=== PATIENT | female | born 1935 | race Caucasian/White ===

== ENCOUNTER 2017-11-18 01:25 | Emergency (ER) | payer OTHER, MEDICARE ==
[~2017-11-18] VITALS: Ht 165.1 cm; Wt 81.6 kg
[2017-11-18 01:27] VITALS: BP_SYST 95
[2017-11-18] MEDS ORDERED: NACL 0.9% 1,000 ML IV ONE (01:28)
[2017-11-18] MEDS ORDERED: NS 500 ML IV ONE (01:30)
[2017-11-18] MEDS ORDERED: ARI1 PO (01:33)
[2017-11-18] MEDS ORDERED: CYM30 PO (01:34)
[2017-11-18] MEDS ORDERED: GABA-331 PO (01:34)
[2017-11-18] MEDS ORDERED: GABA-531 PO (01:35)
[2017-11-18] MEDS ORDERED: DOCU-144 PO (01:36)
[2017-11-18] MEDS ORDERED: ACET-2165 PO (01:36)
[2017-11-18] MEDS ORDERED: OMEP20CA10 PO (01:37)
[2017-11-18] MEDS ORDERED: ASPI-1063 PO (01:37)
[2017-11-18] MEDS ORDERED: SUCR1TAB78 PO (01:38)
[2017-11-18] MEDS ORDERED: DULR10 RC (01:39)
[2017-11-18] MEDS ORDERED: CHOL200035 PO (01:39)
[2017-11-18] MEDS ORDERED: MAGN400O4 PO (01:40)
[2017-11-18] MEDS ORDERED: HYDR-4100 PO (01:41)
[2017-11-18] MEDS ORDERED: MAG-55 PO (01:42)
[2017-11-18] MEDS ORDERED: LACT10SO6 PO (01:43)
[2017-11-18] MEDS ORDERED: NITSL SL (01:44)
[2017-11-18] MEDS ORDERED: ARTT OP (01:45)
[2017-11-18 02:51] LABS: ANION GAP 11 (5-15); CALCIUM 9.4 mg/dL (8.4-11.0); CHLORIDE 107 mmol/L (98-107); CREATININE 1.08 mg/dL (0.55-1.30); GLUCOSE 116 mg/dL (70-99); POTASSIUM 3.8 mmol/L (3.5-5.1); SODIUM SERUM 141 mmol/L (136-145); UREA NITROGEN, BLOOD 29 mg/dL (8-21)
[2017-11-18 02:53] LABS: HEMATOCRIT 31.3 % (36-48); HEMOGLOBIN 10.8 g/dL (12.0-16.0); MEAN CORPUSCULAR HEMOGLOBIN 35 pg (27-31); MEAN CORPUSCULAR HGB CONC 34 % (32-36); MEAN CORPUSCULAR VOLUME 101 fL (79.0-98.0); PLATELET COUNT (AUTO) 147 K/uL (130-430); RED CELL DISTRIBUTION WIDTH 13.3 % (9.0-15.0); WHITE BLOOD COUNT (AUTO) 14.2 K/uL (4.8-10.8)
[2017-11-18 03:02] LABS: ALANINE AMINOTRANSFERASE 36 U/L (12-78); ALBUMIN 2.6 g/dL (3.4-4.8); ASPARTATE AMINOTRANSFERASE 55 U/L (10-37); TOTAL BILIRUBIN 0.9 mg/dL (0.0-1.0)
[2017-11-18 03:48] LABS: BAND % (MANUAL) 10 % (0-6); BASOPHILS % (MANUAL) 0 % (0-2); EOSINOPHILS % (MANUAL) 0 % (0-7); LYMPHOCYTES % (MANUAL) 4 % (20-46); MONOCYTES % (MANUAL) 1 % (0-11)
[2017-11-18 04:15] VITALS: BP_SYST 93
== END 2017-11-18 04:15 | disposition home or self-care (01) ==
LOC: SED 01:25
DX: S39.92XA Unspecified injury of lower back, initial encounter (principal); K59.00 Constipation, unspecified; F03.90 Unspecified dementia, unspecified severity, without behavioral disturbance, psychotic disturbance, mood disturbance, and anxiety; K21.9 Gastro-esophageal reflux disease without esophagitis; Z91.041 Radiographic dye allergy status; Z79.82 Long term (current) use of aspirin; Z79.899 Other long term (current) drug therapy; W19.XXXA Unspecified fall, initial encounter; Y93.89 Activity, other specified; Y92.89 Other specified places as the place of occurrence of the external cause; Y99.8 Other external cause status
CPT/HCPCS: 36415; 71045; 74176; 80053; 83880; 84484; 85007; 85027; 93005; 96360; 96361; 99285; J7030; J7040

== ENCOUNTER 2018-01-01 09:53 | Emergency (ER) | payer OTHER, MEDICARE ==
[~2018-01-01] VITALS: Ht 165.1 cm; Wt 83.0 kg
[2018-01-01 09:53] VITALS: BP_SYST 97
[~2018-01-01 09:53] MED LIST: ACET-2165 PO; ARI1 PO; ARTT OP; ASPI-1153 PO; CHOL200075 PO; CYM30 PO; DOCU-144 PO; DULR10 RC; GABA-331 PO; GABA-531 PO; HYDR-4100 PO; LACT10SO6 PO; MAG-55 PO; MOM PO; NITSL SL; OMEP20CA10 PO; SUCR1TAB78 PO
[2018-01-01] MEDS ORDERED: LIDOCAINE 1% 10 MG/ML, 20 ML MDV INJ ONE (10:45)
[2018-01-01] MEDS ORDERED: BACITRACIN 1 GM OINT TP ONE (11:00)
[2018-01-01 11:58] LABS: ACETAMINOPHEN 2 ug/mL (1-30)
[2018-01-01 12:09] LABS: ANION GAP 10 (5-15); CALCIUM 9.6 mg/dL (8.4-11.0); CHLORIDE 112 mmol/L (98-107); CREATININE 0.87 mg/dL (0.55-1.30); GLUCOSE 93 mg/dL (70-99); POTASSIUM 4.4 mmol/L (3.5-5.1); SODIUM SERUM 146 mmol/L (136-145); UREA NITROGEN, BLOOD 22 mg/dL (8-21)
[2018-01-01 12:14] LABS: ALANINE AMINOTRANSFERASE 18 U/L (12-78); ALBUMIN 2.7 g/dL (3.4-4.8); ASPARTATE AMINOTRANSFERASE 27 U/L (10-37); TOTAL BILIRUBIN 0.4 mg/dL (0.0-1.0)
[2018-01-01 12:44] LABS: BILIRUBIN,URINE NEGATIVE (NEGATIVE); BLOOD, URINE NEGATIVE (NEGATIVE); CLARITY/URINE CLEAR (CLEAR); COLOR,URINE YELLOW (YELLOW); GLUCOSE,URINE NEGATIVE (NEGATIVE); KETONES,URINE NEGATIVE (NEGATIVE); LEUKOCYTE ESTERASE ,URINE TRACE (NEGATIVE); NITRITE, URINE NEGATIVE (NEGATIVE); PH,URINE 5.5 (5.0-8.0); PROTEIN URINE NEGATIVE (NEGATIVE); UROBILINOGEN,URINE 0.2 (0.2-1.0)
[2018-01-01] MEDS ORDERED: CEPHALEXIN 500 MG CAPSULE PO ONE (14:45)
[2018-01-01 15:49] VITALS: BP_SYST 100
== END 2018-01-01 15:49 | disposition home or self-care (01) ==
LOC: SED 09:53
DX: S01.01XA Laceration without foreign body of scalp, initial encounter (principal); F03.90 Unspecified dementia, unspecified severity, without behavioral disturbance, psychotic disturbance, mood disturbance, and anxiety; K21.9 Gastro-esophageal reflux disease without esophagitis; Z79.899 Other long term (current) drug therapy; Z88.8 Allergy status to other drugs, medicaments and biological substances; W01.0XXA Fall on same level from slipping, tripping and stumbling without subsequent striking against object, initial encounter; Y93.89 Activity, other specified; Y92.89 Other specified places as the place of occurrence of the external cause; Y99.8 Other external cause status
CPT/HCPCS: 12001; 36415; 80053; 81003; 93970; 99285; G0480; G0481; J2001

== ENCOUNTER 2018-04-09 09:32 | Inpatient (IN) | payer OTHER, MEDICARE ==
[~2018-04-09] VITALS: Ht 157.5 cm; Wt 62.6 kg
[2018-04-09 09:44] VITALS: BP_SYST 113
[2018-04-09 10:48] LABS: BASOPHILS # (AUTO) 0.1 K/uL (0.0-0.2); BASOPHILS % (AUTO) 1.3 % (0.0-2.0); EOSINOPHILS # (AUTO) 0.2 K/uL (0.0-0.4); HEMATOCRIT 34.5 % (36-48); HEMOGLOBIN 11.2 g/dL (12.0-16.0); LYMPHOCYTES # (AUTO) 1.3 K/uL (1.0-5.5); LYMPHOCYTES % (AUTO) 33.4 % (20.5-51.5); MEAN CORPUSCULAR HEMOGLOBIN 34 pg (27-31); MEAN CORPUSCULAR HGB CONC 33 % (32-36); MEAN CORPUSCULAR VOLUME 105 fL (79.0-98.0); MONOCYTES # (AUTO) 0.4 K/uL (0.0-1.0); MONOCYTES % (AUTO) 10.5 % (1.7-9.3); NEUTROPHILS % (AUTO) 50.8 % (40.0-70.0); PLATELET COUNT (AUTO) 207 K/uL (130-430); RED BLOOD CELL COUNT(AUTO) 3.28 MIL/uL (4.2-6.2); RED CELL DISTRIBUTION WIDTH 15.5 % (9.0-15.0)
[2018-04-09 10:51] LABS: ANION GAP 8 (5-15); CALCIUM 10.3 mg/dL (8.4-11.0); CHLORIDE 107 mmol/L (98-107); CREATININE 1.19 mg/dL (0.55-1.30); GLUCOSE 75 mg/dL (70-99); POTASSIUM 4.7 mmol/L (3.5-5.1); SODIUM SERUM 138 mmol/L (136-145); UREA NITROGEN, BLOOD 22 mg/dL (8-21)
[2018-04-09 10:58] LABS: ALANINE AMINOTRANSFERASE 27 U/L (12-78); ALBUMIN 3.4 g/dL (3.4-4.8); ASPARTATE AMINOTRANSFERASE 34 U/L (10-37); TOTAL BILIRUBIN 0.7 mg/dL (0.0-1.0)
[2018-04-09 11:33] LABS: BILIRUBIN,URINE NEGATIVE (NEGATIVE); BLOOD, URINE NEGATIVE (NEGATIVE); CLARITY/URINE CLEAR (CLEAR); COLOR,URINE YELLOW (YELLOW); GLUCOSE,URINE NEGATIVE (NEGATIVE); KETONES,URINE NEGATIVE (NEGATIVE); LEUKOCYTE ESTERASE ,URINE TRACE (NEGATIVE); NITRITE, URINE NEGATIVE (NEGATIVE); PROTEIN URINE NEGATIVE (NEGATIVE); UROBILINOGEN,URINE 0.2 (0.2-1.0)
[2018-04-09 11:38] LABS: RBC,URINE 0-3 /HPF (0-3)
[2018-04-09 11:39] LABS: BACTERIA,URINE MANY /HPF (None Seen); MUCUS,URINE None Seen /LPF (None Seen)
[2018-04-09 11:44] LABS: PROTHROMBIN TIME 9.8 SECS (9.5-12.5)
[2018-04-09] MEDS ORDERED: cefTRIAXone 1 GM IVPB PREMIX 50 ML IV ONE (13:15)
[2018-04-09] MEDS ORDERED: POTASSIUM CHLORIDE 20 MEQ in 0.45% NACL 1,000 ML IV SCH (13:28)
[2018-04-09] MEDS ORDERED: BISACODYL 10 MG/SUPPOSITORY RC PRN (16:15)
[2018-04-09] MEDS ORDERED: NITROGLYCERIN 0.4 MG TAB.SUBL SL PRN (16:15)
[2018-04-09] MEDS ORDERED: ACETAMINOPHEN 325 MG TABLET PO PRN (16:15)
[2018-04-09] MEDS ORDERED: MILK OF MAGNESIA 30 ML UDC PO PRN (16:15)
[2018-04-09 16:57] VITALS: BP_SYST 96
[2018-04-09] MEDS: POTASSIUM CHLORIDE 20 MEQ in 0.45% NACL 1,000 ML IV SCH (17:42)
[2018-04-09 20:00] VITALS: BP_SYST 114
[2018-04-09] MEDS: SUCRALFATE 1 GM TABLET PO SCH (20:15)
[2018-04-09] MEDS: CEFEPIME 1 GM in D5W 50 ML IV SCH (20:15)
[2018-04-09] MEDS: PEG 400/HYPROMELLOSE/GLYCERIN 15 ML DROPS OP SCH (20:16)
[2018-04-10 02:03] VITALS: BP_SYST 106
[2018-04-10] MEDS ORDERED: HALOPERIDOL LACTATE 5 MG/ML VIAL IM SCH (05:00)
[2018-04-10] MEDS: OMEPRAZOLE 20 MG CAPSULE.DR (PriLOSEC) PO SCH (05:06)
[2018-04-10] MEDS: POTASSIUM CHLORIDE 20 MEQ in 0.45% NACL 1,000 ML IV SCH ×2 (06:43→17:47)
[2018-04-10 07:24] LABS: ANION GAP 7 (5-15); CALCIUM 10.2 mg/dL (8.4-11.0); CHLORIDE 108 mmol/L (98-107); CREATININE 0.96 mg/dL (0.55-1.30); GLUCOSE 88 mg/dL (70-99); POTASSIUM 4.7 mmol/L (3.5-5.1); SODIUM SERUM 136 mmol/L (136-145); UREA NITROGEN, BLOOD 18 mg/dL (8-21)
[2018-04-10 07:27] LABS: BASOPHILS % (AUTO) 0.3 % (0.0-2.0); EOSINOPHILS # (AUTO) 0.1 K/uL (0.0-0.4); EOSINOPHILS % (AUTO) 2.6 % (0.0-4.0); HEMATOCRIT 31.2 % (36-48); HEMOGLOBIN 10.1 g/dL (12.0-16.0); LYMPHOCYTES # (AUTO) 0.8 K/uL (1.0-5.5); LYMPHOCYTES % (AUTO) 16.1 % (20.5-51.5); MEAN CORPUSCULAR HEMOGLOBIN 34 pg (27-31); MEAN CORPUSCULAR HGB CONC 33 % (32-36); MEAN CORPUSCULAR VOLUME 106 fL (79.0-98.0); MONOCYTES # (AUTO) 0.4 K/uL (0.0-1.0); MONOCYTES % (AUTO) 8.1 % (1.7-9.3); NEUTROPHILS # (AUTO) 3.7 K/uL (1.8-7.7); NEUTROPHILS % (AUTO) 72.9 % (40.0-70.0); PLATELET COUNT (AUTO) 196 K/uL (130-430); RED BLOOD CELL COUNT(AUTO) 2.95 MIL/uL (4.2-6.2); RED CELL DISTRIBUTION WIDTH 15.1 % (9.0-15.0)
[2018-04-10 08:02] VITALS: BP_SYST 99
[2018-04-10] MEDS: ENOXAPARIN SODIUM 40 MG/0.4 ML SYRINGE SUBCUT SCH (09:49)
[2018-04-10] MEDS: CEFEPIME 1 GM in D5W 50 ML IV SCH ×2 (09:49→21:01)
[2018-04-10] MEDS: ANASTROZOLE 1 MG TABLET (ARIMIDEX) PO SCH (09:50)
[2018-04-10] MEDS: DOCUSATE SODIUM 100 MG CAPSULE PO SCH (09:50)
[2018-04-10] MEDS: SUCRALFATE 1 GM TABLET PO SCH ×2 (09:50→21:01)
[2018-04-10] MEDS: PEG 400/HYPROMELLOSE/GLYCERIN 15 ML DROPS OP SCH ×3 (09:50→21:01)
[2018-04-10] MEDS: ASPIRIN 81 MG TABLET(ECOTRIN) PO SCH (09:50)
[2018-04-10] MEDS: DULoxetine HCL 30 MG CAPSULE.DR (CYMBALTA) PO SCH (09:50)
[2018-04-10] MEDS: GABAPENTIN 300 MG CAPSULE PO SCH (09:50)
[2018-04-10 12:34] VITALS: BP_SYST 108
[2018-04-10 16:28] VITALS: BP_SYST 112
[2018-04-10 19:55] VITALS: BP_SYST 112
[2018-04-10] MEDS ORDERED: MEGESTROL ACETATE 400 MG/10 ML UDC PO SCH (21:00)
[2018-04-10] MEDS: MEGESTROL ACETATE 400 MG/10 ML UDC PO SCH (21:01)
[2018-04-11 01:38] VITALS: BP_SYST 124
[2018-04-11] MEDS: OMEPRAZOLE 20 MG CAPSULE.DR (PriLOSEC) PO SCH (06:01)
[2018-04-11 08:12] VITALS: BP_SYST 115
[2018-04-11] MEDS: DOCUSATE SODIUM 100 MG CAPSULE PO SCH (08:23)
[2018-04-11] MEDS: GABAPENTIN 300 MG CAPSULE PO SCH (08:23)
[2018-04-11] MEDS: POTASSIUM CHLORIDE 20 MEQ in 0.45% NACL 1,000 ML IV SCH ×2 (08:23→23:54)
[2018-04-11] MEDS: ANASTROZOLE 1 MG TABLET (ARIMIDEX) PO SCH (08:23)
[2018-04-11] MEDS: DULoxetine HCL 30 MG CAPSULE.DR (CYMBALTA) PO SCH (08:24)
[2018-04-11] MEDS: HYDROcodone/ACETAMIN 10-325 MG TAB PO PRN ×2 (08:24→17:35)
[2018-04-11] MEDS: ASPIRIN 81 MG TABLET(ECOTRIN) PO SCH (08:24)
[2018-04-11] MEDS: MEGESTROL ACETATE 400 MG/10 ML UDC PO SCH ×2 (08:25→20:52)
[2018-04-11] MEDS: SUCRALFATE 1 GM TABLET PO SCH ×2 (08:25→20:52)
[2018-04-11] MEDS: ENOXAPARIN SODIUM 40 MG/0.4 ML SYRINGE SUBCUT SCH (08:26)
[2018-04-11] MEDS: CEFEPIME 1 GM in D5W 50 ML IV SCH ×2 (08:26→20:53)
[2018-04-11] MEDS: PEG 400/HYPROMELLOSE/GLYCERIN 15 ML DROPS OP SCH ×3 (08:26→20:54)
[2018-04-11 12:25] VITALS: BP_SYST 123
[2018-04-11 16:45] VITALS: BP_SYST 112
[2018-04-11 20:05] VITALS: BP_SYST 129; BP_SYST 90
[2018-04-12] MEDS ORDERED: HALOPERIDOL LACTATE 5 MG/ML VIAL IM ONE
[2018-04-12 00:02] VITALS: BP_SYST 144
[2018-04-12] MEDS: OMEPRAZOLE 20 MG CAPSULE.DR (PriLOSEC) PO SCH (05:34)
[2018-04-12 07:37] VITALS: BP_SYST 100
[2018-04-12] MEDS: DOCUSATE SODIUM 100 MG CAPSULE PO SCH (08:06)
[2018-04-12] MEDS: PEG 400/HYPROMELLOSE/GLYCERIN 15 ML DROPS OP SCH ×3 (08:06→21:51)
[2018-04-12] MEDS: CEFEPIME 1 GM in D5W 50 ML IV SCH (08:07)
[2018-04-12] MEDS: GABAPENTIN 300 MG CAPSULE PO SCH (08:07)
[2018-04-12] MEDS: MEGESTROL ACETATE 400 MG/10 ML UDC PO SCH ×2 (08:07→21:50)
[2018-04-12] MEDS: SUCRALFATE 1 GM TABLET PO SCH ×2 (08:07→21:51)
[2018-04-12] MEDS: ASPIRIN 81 MG TABLET(ECOTRIN) PO SCH (08:07)
[2018-04-12] MEDS: DULoxetine HCL 30 MG CAPSULE.DR (CYMBALTA) PO SCH (08:07)
[2018-04-12] MEDS: ANASTROZOLE 1 MG TABLET (ARIMIDEX) PO SCH (09:00)
[2018-04-12] MEDS: ENOXAPARIN SODIUM 40 MG/0.4 ML SYRINGE SUBCUT SCH (09:06)
[2018-04-12 12:15] VITALS: BP_SYST 131
[2018-04-12 12:45] VITALS: BP_SYST 97
[2018-04-12] MEDS: POTASSIUM CHLORIDE 20 MEQ in 0.45% NACL 1,000 ML IV SCH (14:08)
[2018-04-12 16:24] VITALS: BP_SYST 103
[2018-04-12 20:00] VITALS: BP_SYST 129
[2018-04-12] MEDS: MEROPENEM 1 GM IVPB PREMIX 50 ML IV SCH (21:51)
[2018-04-12] MEDS: OLANZapine 2.5 MG TABLET PO SCH (21:51)
[2018-04-13 04:19] VITALS: BP_SYST 112
[2018-04-13] MEDS: POTASSIUM CHLORIDE 20 MEQ in 0.45% NACL 1,000 ML IV SCH ×2 (05:08→18:23)
[2018-04-13] MEDS: MEROPENEM 1 GM IVPB PREMIX 50 ML IV SCH ×3 (05:58→21:45)
[2018-04-13] MEDS: OMEPRAZOLE 20 MG CAPSULE.DR (PriLOSEC) PO SCH (05:58)
[2018-04-13 07:27] VITALS: BP_SYST 111
[2018-04-13] MEDS: MEGESTROL ACETATE 400 MG/10 ML UDC PO SCH ×2 (08:13→21:43)
[2018-04-13] MEDS: PEG 400/HYPROMELLOSE/GLYCERIN 15 ML DROPS OP SCH ×3 (08:14→21:44)
[2018-04-13] MEDS: GABAPENTIN 300 MG CAPSULE PO SCH (08:14)
[2018-04-13] MEDS: SUCRALFATE 1 GM TABLET PO SCH ×2 (08:14→21:44)
[2018-04-13] MEDS: ANASTROZOLE 1 MG TABLET (ARIMIDEX) PO SCH (08:14)
[2018-04-13] MEDS: ASPIRIN 81 MG TABLET(ECOTRIN) PO SCH (08:14)
[2018-04-13] MEDS: OLANZapine 2.5 MG TABLET PO SCH ×2 (08:14→21:44)
[2018-04-13] MEDS: DOCUSATE SODIUM 100 MG CAPSULE PO SCH (08:14)
[2018-04-13] MEDS: DULoxetine HCL 30 MG CAPSULE.DR (CYMBALTA) PO SCH (08:14)
[2018-04-13] MEDS: ENOXAPARIN SODIUM 40 MG/0.4 ML SYRINGE SUBCUT SCH (08:15)
[2018-04-13 12:10] VITALS: BP_SYST 131
[2018-04-13 17:25] VITALS: BP_SYST 122
[2018-04-13 20:23] VITALS: BP_SYST 117
[2018-04-13 23:30] VITALS: BP_SYST 136
[2018-04-14] MEDS ORDERED: HALOPERIDOL LACTATE 5 MG/ML VIAL IM ONE (00:45)
[2018-04-14] MEDS ORDERED: HALOPERIDOL LACTATE 5 MG/ML VIAL ONE (00:53)
[2018-04-14 04:18] VITALS: BP_SYST 110
[2018-04-14] MEDS: OMEPRAZOLE 20 MG CAPSULE.DR (PriLOSEC) PO SCH (06:17)
[2018-04-14] MEDS: MEROPENEM 1 GM IVPB PREMIX 50 ML IV SCH ×2 (06:17→13:34)
[2018-04-14 07:36] VITALS: BP_SYST 114
[2018-04-14] MEDS: MEGESTROL ACETATE 400 MG/10 ML UDC PO SCH (08:05)
[2018-04-14] MEDS: DOCUSATE SODIUM 100 MG CAPSULE PO SCH (08:05)
[2018-04-14] MEDS: DULoxetine HCL 30 MG CAPSULE.DR (CYMBALTA) PO SCH (08:05)
[2018-04-14] MEDS: SUCRALFATE 1 GM TABLET PO SCH (08:05)
[2018-04-14] MEDS: ASPIRIN 81 MG TABLET(ECOTRIN) PO SCH (08:05)
[2018-04-14] MEDS: PEG 400/HYPROMELLOSE/GLYCERIN 15 ML DROPS OP SCH ×3 (08:05→15:20)
[2018-04-14] MEDS: GABAPENTIN 300 MG CAPSULE PO SCH (08:05)
[2018-04-14] MEDS: ANASTROZOLE 1 MG TABLET (ARIMIDEX) PO SCH (08:05)
[2018-04-14] MEDS: OLANZapine 2.5 MG TABLET PO SCH (08:05)
[2018-04-14] MEDS: POTASSIUM CHLORIDE 20 MEQ in 0.45% NACL 1,000 ML IV SCH (08:06)
[2018-04-14] MEDS: ENOXAPARIN SODIUM 40 MG/0.4 ML SYRINGE SUBCUT SCH (08:13)
[2018-04-14 10:37] VITALS: BP_SYST 127
[2018-04-14 11:35] VITALS: BP_SYST 127
== END 2018-04-14 15:45 | disposition hospice, home (50) | DRG 689 ==
LOC: SED 09:32 → STU 13:28
PROVIDERS: ADMIT Family Medicine; ATTEND Family Medicine
DX: N39.0 Urinary tract infection, site not specified (principal); G93.41 Metabolic encephalopathy; E87.1 Hypo-osmolality and hyponatremia; F03.90 Unspecified dementia, unspecified severity, without behavioral disturbance, psychotic disturbance, mood disturbance, and anxiety; K21.9 Gastro-esophageal reflux disease without esophagitis; Z16.30 Resistance to unspecified antimicrobial drugs; R63.0 Anorexia; Z68.25 Body mass index [BMI] 25.0-25.9, adult; I10 Essential (primary) hypertension; M19.90 Unspecified osteoarthritis, unspecified site; R29.6 Repeated falls; Z91.041 Radiographic dye allergy status; Z79.82 Long term (current) use of aspirin; Z79.899 Other long term (current) drug therapy
CPT/HCPCS: 36415; 70450-TC; 71045; 80048; 80053; 81000-TC; 83605; 85025; 85610-TC; 87040-TC; 87086; 87186-TC; 93005; 97110-GP; 97116-GP; 97530-GP; 99285; J0692; J0696; J1630; J1650; J2185; J3480; J7030; J7060